=== PATIENT | male | born 1980 | race Caucasian/White ===

== ENCOUNTER 2022-06-18 09:33 | Outpatient (CLI) | payer OTHER ==
[2022-06-18] MEDS ORDERED: Magnevist 469MG/ML 20 ML VIAL ONE (13:52)
== END 2022-06-18 09:34 | disposition home or self-care (01) ==
LOC: CSHMRI 09:33
PROVIDERS: ATTEND Physician Assistant Medical
DX: K70.10 Alcoholic hepatitis without ascites (principal); K70.30 Alcoholic cirrhosis of liver without ascites; K76.6 Portal hypertension; N62 Hypertrophy of breast
CPT/HCPCS: 74183; A9579